=== PATIENT | male | born 1995 | race Caucasian/White ===

== ENCOUNTER 2016-12-12 09:30 | Emergency (ER) | payer OTHER ==
[2016-12-12 09:35] VITALS: BP 126/81; PULSE 72; TEMP 98.6; BMI 21.0
[2016-12-12] MEDS ORDERED: IBUPROFEN 400 MG TABLET (FP) PO ONE ×2 (09:39→09:52)
--- NOTE | 2016-12-12 09:46 | PDOC ---
History of Present Illness - General Chief Complaint: Injury Stated Complaint: RT THIGH PAIN Time Seen by Provider: 12/12/16 09:32 History Source: Patient Exam Limitations: No Limitations - History of Present Illness Initial Comments: 12/12/16 09:41 21y M no pmhx presents with complaint of R thigh pain. The patient endorses playing basketball 2 days ago and ran into the pole, he was able to break some of the impact with his arms and someone also helped slow him down by holding his chest. He has been having pain in his lateral r thigh, and occasionally his r leg would give out. pt has not taken any meds at home. no other head injury, neck pain, back pain, numbness/tingling/weakness. Past History - Past Medical History Allergies/Adverse Reactions: Allergies Allergy/AdvReac Type Severity Reaction Status Date / Time No Known Allergies Allergy Verified 12/12/16 09:31 Home Medications: Ambulatory Orders NK [No Known Home Medication] 11/12/15 Other medical history: DENIES - Immunization History Immunization Up to Date: Yes - Psycho/Social/Smoking Cessation Hx Anxiety: No Suicidal Ideation: No Smoking History: Current every day smoker Have you smoked in the past 12 months: Yes Number of Cigarettes Smoked Daily: 2 Information on smoking cessation initiated: Yes 'Breaking Loose' booklet given: 12/12/16 Hx Alcohol Use: No Drug/Substance Use Hx: No Substance Use Type: None Review of Systems - Review of Systems Able to Perform ROS?: Yes Comments:: 12/12/16 09:43 Constitutional - no reported Fever, Chills, Musculskelatal - +thigh pain no reported back pain, joint swelling skin - no reported bruising, erythema, rash neurological: no reported headache, numbness, focal weakness, tingling hematologic: no reported anemia, easy bruising, easy bleeding *Physical Exam - Vital Signs Last Vital Signs Temp Pulse Resp BP Pulse Ox 98.6 F 72 18 126/81 100 12/12/16 09:30 12/12/16 09:30 12/12/16 09:30 12/12/16 09:30 12/12/16 09:30 - Physical Exam Comments: 12/12/16 09:43 GENERAL: The patient is awake, alert, and fully oriented, Nontoxic - in no acute distress. HEAD: Normocephalic, atraumatic. EXTREMITIES: +tenderness to palpation w/o any bruising/ecchymosis of his R distal thigh, no pain with stressing of femur, Normal range of motion, no edema. SKIN: No ecchymossis rash or warmth appreciated on area of tenderness Medical Decision Making - Medical Decision Making 12/12/16 09:44 likely contusion secondary to trauma no pain on stressing of femur, do not suspect fx no other focal tenderness will give motrin supportivae management at home I discussed the physical exam findings, ancillary test results and final diagnoses with the patient. I answered all of the patient's questions. The patient was satisfied with the care received and felt comfortable with the discharge plan and treatment plan. The patient will call their primary care physician within 24 hours to arrange follow-up and will return to the Emergency Department with any new, persistent or worsening symptoms. *DC/Admit/Observation/Transfer Diagnosis at time of Disposition: Muscle contusion - Discharge Dispostion Disposition: HOME Condition at time of disposition: Improved Admit: No - Referrals Referrals: Dimas Jerry MD [Staff Physician] - - Patient Instructions Printed Discharge Instructions: DI for Contusion Additional Instructions: Return to the emergency department immediately with ANY new, persistent or worsening symptoms. Take 400mg motrin and or 625mg tylenol four times daily as needed for pain. Apply heat for comfort. You MUST call and follow up with your doctor tomorrow for further evaluation of your symptoms. Results were discussed with you. Please make sure your doctor reviews the results of your emergency evaluation. Print Language: [id number]
== END 2016-12-12 10:27 | disposition home or self-care (01) ==
LOC: FER 09:30
DX: S70.11XA Contusion of right thigh, initial encounter (principal); Y93.67 Activity, basketball; Y92.310 Basketball court as the place of occurrence of the external cause; F17.210 Nicotine dependence, cigarettes, uncomplicated
CPT/HCPCS: 99282-25

== ENCOUNTER 2021-11-18 20:01 | Emergency (ER) | payer OTHER ==
[2021-11-18 20:20] VITALS: BP 136/88; PULSE 84; TEMP 98.2; BMI 21.0
[2021-11-18] MEDS ORDERED: KETOROLAC TROMETHAMINE 60 MG/2 ML VIAL IM ONE (21:36)
[2021-11-18] MEDS ORDERED: KETOROLAC TROMETHAMINE 60 MG/2 ML VIAL ONE (21:42)
== END 2021-11-18 22:59 | disposition home or self-care (01) ==
LOC: FER 20:01
PROC: 3E023GC Introduction of Other Therapeutic Substance into Muscle, Percutaneous Approach (ICD-10-PCS; principal; 2021-11-18)
DX: M54.50 Low back pain, unspecified (principal)
CPT/HCPCS: 99284-25